=== PATIENT | female | born 1980 ===

== ENCOUNTER 2024-12-08 05:28 | Day surgery (SDC) | payer OTHER ==
[2024-12-01 08:44] LABS: BASO % 0.8 % (0.1-1.2); EOS # 0.42 (0.04-0.54); EOS % 8.8 % (0.7-7.0); HEMATOCRIT 34.5 % (34.1-44.9); HEMOGLOBIN 11.8 g/dL (11.2-15.7); LYMPH # 1.82 (1.18-3.74); LYMPH % 38.2 % (19.3-53.1); MEAN CORPUSCULAR HEMOGLOBIN 29.4 pg (25.6-32.2); MONO # 0.37 (0.24-0.82); MONO % 7.8 % (4.7-12.5); NEUT # 2.11 (1.56-6.13); NEUT % 44.4 % (34.0-71.1); PLATELET COUNT 248 K/uL (163-369); RED BLOOD COUNT 4.01 M/uL (3.93-5.22); RED CELL DISTRIBUTION WIDTH 12.9 % (11.6-14.4)
[2024-12-01 08:45] VITALS: BP 127/80
[2024-12-01 08:45] LABS: URINE APPEARANCE Clear; URINE BILIRRUBIN Negative (NEGATIVE); URINE BLOOD Small; URINE COLOR Yellow; URINE GLUCOSE Negative (NEGATIVE); URINE KETONE Negative (NEGATIVE); URINE LEUKOCYTE Negative; URINE NITRATE Negative; URINE PROTEIN Negative (NEGATIVE); URINE UROBILINOGEN 0.2 E.U./dl
[2024-12-01 08:46] LABS: URINE BACTERIA 119.8 uL (0.0-1933); URINE EPITHELIAL CELLS 7.5 uL (0.0-38.8)
[2024-12-01 09:15] LABS: URINE WBC 1.1 uL (0.0-23.2)
[2024-12-01 09:16] LABS: INR 0.94; PARTIAL THROMBOPLASTIN TIME 25.6 SECONDS (22.0-34.0); PROTHROMBIN TIME 10.3 SECONDS (9.0-11.5)
[2024-12-01 09:26] LABS: BILIRUBIN TOTAL 0.26 mg/dL (0.3-1.2); CALCIUM 8.7 mg/dL (8.5-10.1); CREATININE SERUM 0.66 mg/dL (0.55-1.02); GFR 96.41; GLOBULINA 2.9 G/DL (2.4-3.5); POTASSIUM 3.91 mEq/L (3.5-5.1); TOTAL PROTEIN 6.9 gm/dL (6.4-8.2)
[~2024-12-08] VITALS: Ht 157.5 cm; Wt 54.4 kg
[~2024-12-08 05:28] MED LIST: ADDERALL XR 2020 MG PO; PRISTIQ ER100 MG PO; ZYRTEC10 M3 PO
[2024-12-08] MEDS ORDERED: POVIDONE-IODINE 118 ML BOTT TOP ONE ×2 (07:12→09:01)
[2024-12-08] MEDS ORDERED: CEFAZOLIN SODIUM 1,000 MG VIAL ONE (07:20)
[2024-12-08] MEDS ORDERED: MONODOX100 MG PO (10:22)
[2024-12-08] MEDS ORDERED: NAPROXEN500 MG PO (10:22)
[2024-12-08] MEDS ORDERED: RACEPINEPHRINE HCL 0.5 ML AMPUL IH ONE ×2 (11:16→11:30)
[2024-12-08] MEDS ORDERED: ONDANSETRON HCL 2 MG/ML VIAL ONE ×2 (11:47→14:01)
[2024-12-08] MEDS ORDERED: ONDANSETRON HCL 2 MG/ML VIAL IV ONE ×2 (11:50→14:10)
[2024-12-08] MEDS ORDERED: FAMOTIDINE/PF 20 MG/2 ML VIAL ONE (14:03)
[2024-12-08] MEDS ORDERED: FAMOTIDINE/PF 20 MG/2 ML VIAL IV ONE (14:20)
== END 2024-12-08 18:00 | disposition home or self-care (01) ==
LOC: CIR.AMB 05:28
PROVIDERS: ATTEND Obstetrics & Gynecology
DX: D25.0 Submucous leiomyoma of uterus (principal); N92.0 Excessive and frequent menstruation with regular cycle; N84.0 Polyp of corpus uteri